=== PATIENT | female | born 2000 | race Caucasian/White ===

== ENCOUNTER 2020-01-06 10:12 | Emergency (ER) | payer OTHER ==
--- NOTE | 2020-01-06 10:39 | EDM.PDOC ---
ED HPI GENERAL MEDICAL PROBLEM - General Chief Complaint: Genitourinary Problem Stated Complaint: [id number] KIDNEY STONE Time Seen by Provider: 01/06/20 10:28 Source of Information: Reports: Patient, RN History Limitations: Reports: No Limitations - History of Present Illness INITIAL COMMENTS - FREE TEXT/NARRATIVE: 19 year patient who present to the ER with complaints of kidney pain. Patient states she started having left flank pain four days ago. She has passed two stones. She has taken Tylenol for pain which helped but today the pain was worsen and ibuprofen did not make a difference. She admits to mild hematuria. Rates pain as 7/10 which is always present. She denies any fever/chills. She has not been seen by a provider for this. She reports a history of frequent UTI. 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 [No Known Home Meds] 01/06/20 [History] ED ROS GENERAL - Review of Systems Review Of Systems: See Below Constitutional: Reports: No Symptoms Cardiovascular: Reports: No Symptoms Endocrine: Reports: No Symptoms GI/Abdominal: Reports: No Symptoms : Reports: Flank Pain, Frequency, Urgency. Denies: Dysuria Musculoskeletal: Reports: No Symptoms Skin: Reports: No Symptoms Neurological: Reports: No Symptoms Psychiatric: Reports: No Symptoms ED EXAM, RENAL/ - Physical Exam Exam: See Below Exam Limited By: No Limitations General Appearance: Alert, WD/WN, Mild Distress Respiratory/Chest: No Respiratory Distress, Lungs Clear, Normal Breath Sounds, Chest Non-Tender Cardiovascular: Normal Peripheral Pulses, Regular Rate, Rhythm GI/Abdominal: Normal Bowel Sounds, Soft, Non-Tender, No Distention. No: Guarding Back Exam: Normal Inspection, Full Range of Motion, CVA Tenderness (L) (very mild) Extremities: Normal Inspection, Normal Range of Motion, Non-Tender, Normal Capillary Refill, No Pedal Edema Neurological: Alert, Oriented, CN II-XII Intact, Normal Cognition, Normal Gait, Normal Reflexes, No Motor/Sensory Deficits Psychiatric: Normal Affect, Normal Mood Skin Exam: Warm Course - Vital Signs Last Recorded V/S: Last Vital Signs Temp 97.3 F 01/06/20 10:17 Pulse 79 01/06/20 10:17 Resp 16 01/06/20 10:17 BP 142/81 H 01/06/20 10:17 Pulse Ox 100 01/06/20 10:17 - Orders/Labs/Meds Orders: Active Orders 24 hr Category Date Time Status CULTURE URINE [RM] Stat Lab 01/06/20 10:20 Received Labs: Laboratory Tests 01/06/20 01/06/20 01/06/20 Range/Units 10:20 10:20 10:35 WBC 7.9 (5.0-10.0) 10^3/uL RBC 4.97 (4.2-5.4) 10^6/uL Hgb 14.6 (12.0-16.0) g/dL Hct 43.9 (37.0-47.0) % MCV 88.3 (80-100) fL MCH 29.4 (27.0-34.0) pg MCHC 33.3 (33.0-35.0) g/dL Plt Count 246 (150-450) 10^3/uL Neut % (Auto) 64.8 (42.2-75.2) % Lymph % (Auto) 25.8 (20.5-50.1) % Cavalier % (Auto) 8.0 (2-8) % Eos % (Auto) 1.1 (1.0-3.0) % Baso % (Auto) 0.3 (0.0-1.0) % Sodium (136-145) mmol/L Potassium (3.5-5.1) mmol/L Chloride (98-107) mmol/L Carbon Dioxide (21-32) mmol/L Anion Gap (7-13) mEq/L BUN (7-18) mg/dL Creatinine (0.55-1.02) mg/dL Est Cr Clr Drug Dosing mL/min Estimated GFR (MDRD) BUN/Creatinine Ratio (No establ ref range) Glucose (74-99) mg/dL Calcium (8.5-10.1) mg/dL Total Bilirubin (0.2-1.0) mg/dL AST (15-37) U/L ALT (14-59) U/L Alkaline Phosphatase (46-116) U/L Total Protein (6.4-8.2) g/dL Albumin (3.4-5.0) g/dL Globulin Albumin/Globulin Ratio Urine Color Yellow (YELLOW) Urine Appearance Turbid (CLEAR) Urine pH 7.0 (5.0-9.0) Ur Specific [place] >= 1.030 (1.005-1.030) Urine Protein >=300 H (NEGATIVE) Urine Glucose (UA) Negative (NEGATIVE) Urine Ketones Negative (NEGATIVE) Urine Occult Blood Large H (NEGATIVE) Urine Nitrite Negative (NEGATIVE) Urine Bilirubin Negative (NEGATIVE) Urine Urobilinogen 0.2 (0.2-1.0) mg/dL Ur Leukocyte Esterase Moderate H (NEGATIVE) Urine RBC >100 H /HPF Urine WBC >100 H (0-5/HPF) /HPF Ur Epithelial Cells Few (NOT SEEN) /HPF Amorphous Sediment Few (NOT SEEN) /HPF Urine Bacteria Moderate H (0-FEW/HPF) /HPF Urine Mucus Rare (NOT SEEN) /LPF Urine HCG, Qual Negative 01/06/20 Range/Units 10:35 WBC (5.0-10.0) 10^3/uL RBC (4.2-5.4) 10^6/uL Hgb (12.0-16.0) g/dL Hct (37.0-47.0) % MCV (80-100) fL MCH (27.0-34.0) pg MCHC (33.0-35.0) g/dL Plt Count (150-450) 10^3/uL Neut % (Auto) (42.2-75.2) % Lymph % (Auto) (20.5-50.1) % [place]alier % (Auto) (2-8) % Eos % (Auto) (1.0-3.0) % Baso % (Auto) (0.0-1.0) % Sodium 138 (136-145) mmol/L Potassium 4.1 (3.5-5.1) mmol/L Chloride 102 (98-107) mmol/L Carbon Dioxide 30 (21-32) mmol/L Anion Gap 10.1 (7-13) mEq/L BUN 16 (7-18) mg/dL Creatinine 1.05 H (0.55-1.02) mg/dL Est Cr Clr Drug Dosing 67.03 mL/min Estimated GFR (MDRD) > 60 BUN/Creatinine Ratio 15.2 (No establ ref range) Glucose 65 L (74-99) mg/dL Calcium 8.9 (8.5-10.1) mg/dL Total Bilirubin 0.5 (0.2-1.0) mg/dL AST 26 (15-37) U/L ALT 33 (14-59) U/L Alkaline Phosphatase 38 L (46-116) U/L Total Protein 8.1 (6.4-8.2) g/dL Albumin 4.3 (3.4-5.0) g/dL Globulin 3.8 Albumin/Globulin Ratio 1.1 Urine Color (YELLOW) Urine Appearance (CLEAR) Urine pH (5.0-9.0) Ur Specific [place] (1.005-1.030) Urine Protein (NEGATIVE) Urine Glucose (UA) (NEGATIVE) Urine Ketones (NEGATIVE) Urine Occult Blood (NEGATIVE) Urine Nitrite (NEGATIVE) Urine Bilirubin (NEGATIVE) Urine Urobilinogen (0.2-1.0) mg/dL Ur Leukocyte Esterase (NEGATIVE) Urine RBC /HPF Urine WBC (0-5/HPF) /HPF Ur Epithelial Cells (NOT SEEN) /HPF Amorphous Sediment (NOT SEEN) /HPF Urine Bacteria (0-FEW/HPF) /HPF Urine Mucus (NOT SEEN) /LPF Urine HCG, Qual Meds: Medications Discontinued Medications Generic Name Dose Route Start Last Admin Trade Name Freq PRN Reason Stop Dose Admin Sodium Chloride 1,000 mls @ 1,000 mls/hr 01/06/20 10:40 01/06/20 10:51 Normal Saline IV 01/06/20 11:39 1,000 mls/hr .BOLUS ONE Administration Ketorolac Tromethamine 30 mg 01/06/20 10:40 01/06/20 10:51 Toradol IVPUSH 01/06/20 10:41 30 mg ONETIME ONE Administration Orphenadrine Citrate 60 mg 01/06/20 10:41 Norflex IM 01/06/20 10:42 ONETIME ONE - Re-Assessments/Exams Free Text/Narrative Re-Assessment/Exam: 19 year old who presents to the ER with complaints left flank pain for four days. She denies any history of kidney stones but admits she had passed two stones at home. She is also reports frequency for the past two days. She has been pushing fluids and has tried Tylenol and ibuprofen for pain. Toradol administered in the ER with significant relief of pain from 11/29 to 06/01. IV fluids also administered. CMP show creatinine mild elevated at 1.05, UA positive for protein, blood, bacteria and leukocytes. RX for Keflex, Toradol and Flomax send home with patient. Followup with PCP in the clinic with stones for analysis. Push fluids. Symptoms to return to the ER reviewed with patient. 01/06/20 12:03 01/06/20 12:04 Departure - Departure Time of Disposition: 12:07 Disposition: Home, Self-Care 01 Condition: Good Clinical Impression: UTI, Urinary tract infectious disease - Discharge Information Instructions: Kidney Stones, [id number], Urinary Tract Infection, Adult, [id number] Forms: ED Department Discharge Additional Instructions: Follow up with PCP. Additional instruction included in AVS. Sepsis Event Note (ED) - Evaluation Sepsis Screening Result: No Definite Risk - Focused Exam Vital Signs: Vital Signs Temp Pulse Resp BP Pulse Ox 01/06/20 10:17 97.3 F 79 16 142/81 H 100 - My Orders Last 24 Hours: My Active Orders 01/06/20 10:20 CULTURE URINE [RM] Stat - Assessment/Plan Last 24 Hours: My Active Orders 01/06/20 10:20 CULTURE URINE [RM] Stat
[2020-01-06] MEDS ORDERED: Ketorolac 30 MG/ML SDV IVPUSH ONE (10:40)
[2020-01-06] MEDS ORDERED: Sodium Chloride 0.9% 1,000 ML IV ONE (10:40)
[2020-01-06 11:08] LABS: ANION GAP 10.1 mEq/L (7-13); CHLORIDE,CL 102 mmol/L (98-107); SODIUM,NA 138 mmol/L (136-145)
== END 2020-01-06 12:21 | disposition home or self-care (01) ==
LOC: DL.ED 10:12
DX: N39.0 Urinary tract infection, site not specified (principal); R31.9 Hematuria, unspecified
CPT/HCPCS: 36415; 80053; 81001; 81025; 85025; 87086; 87088; 87186; 96361; 96374; 99283; 99284; J1885; J7030